=== PATIENT | male | born 1975 | race Hispanic/Latino ===

== ENCOUNTER 2017-03-04 10:23 | Emergency (ER) | payer OTHER ==
[2017-03-04 10:46] VITALS: TEMP 98
[2017-03-04] MEDS ORDERED: Sodium Chloride 0.9% 1,000 ML IV STA (10:58)
--- NOTE | 2017-03-04 11:09 | ED PDOC ---
HPI: Abdomen Time Seen by Provider: 03/04/17 10:44 Chief Complaint (Nursing): Male Genitourinary Chief Complaint (Provider): Flank pain History Per: Patient History/Exam Limitations: no limitations Onset/Duration Of Symptoms: Hrs Outside of [place] travel?: No Current Symptoms Are (Timing): Still Present Severity: Moderate Location Of Pain/Discomfort: Other (right flank) Quality Of Discomfort: "Pain" Associated Symptoms: denies: Fever, Chills, Nausea, Vomiting, Diarrhea, Urinary Symptoms Alleviating Factors: denies: OTC Meds Additional History Per: Patient Additional Complaint(s): The pt is a 41yo male, with no pertinent PMHx, presents to the ED for evaluation of sharp right flank pain since 9am today. Pt reports the pain ins non-radiating, with no associated fever, nausea, vomiting, dysuria or hematuria. Pt reports taking 2 tylenol for pain without relief. Denies any other medical complaints. Past Medical History Reviewed: Historical Data, Nursing Documentation, Vital Signs Vital Signs: Last Vital Signs Temp 98 F 03/04/17 10:44 Pulse 78 03/04/17 16:10 Resp 16 03/04/17 16:10 BP 128/72 03/04/17 16:10 Pulse Ox 98 03/04/17 16:10 - Medical History PMH: Bronchitis - Surgical History Other surgeries: foot surgery, achilles repair, ortho surgery - Family History Family History: States: Unknown Family Hx - Home Medications Home Medications: Ambulatory Orders Medication Instructions Recorded Naproxen [Naprosyn] 500 mg PO BID PRN #15 tablet 03/04/17 Nitrofurantoin Macrocrystals 100 mg PO BID #14 cap 03/04/17 [Macrobid] Tamsulosin [Flomax] 0.4 mg PO DAILY #14 cap 03/04/17 oxyCODONE/Acetaminophen [Percocet 1 tab PO Q6H PRN #15 tab 03/04/17 5/325 mg Tab] - Allergies Allergies/Adverse Reactions: Allergies Allergy/AdvReac Type Severity Reaction Status Date / Time No Known Allergies Allergy Verified 03/04/17 10:43 Review of Systems ROS Statement: Except As Marked, All Systems Reviewed And Found Negative Constitutional: Negative for: Fever Gastrointestinal: Positive for: Abdominal Pain (right flank). Negative for: Nausea, Vomiting, Diarrhea Genitourinary Male: Negative for: Dysuria, Hematuria Physical Exam - Reviewed Nursing Documentation Reviewed: Yes Vital Signs Reviewed: Yes - Physical Exam Appears: Positive for: Well, Non-toxic, No Acute Distress Head Exam: Positive for: ATRAUMATIC, NORMAL INSPECTION, NORMOCEPHALIC Skin: Positive for: Normal Color Eye Exam: Positive for: Normal appearance Neck: Positive for: Normal Cardiovascular/Chest: Positive for: Regular Rate, Rhythm Respiratory: Positive for: Normal Breath Sounds. Negative for: Respiratory Distress Gastrointestinal/Abdominal: Positive for: Normal Exam, Soft. Negative for: Tenderness Back: Positive for: Normal Inspection. Negative for: R CVA Tenderness Extremity: Positive for: Normal ROM. Negative for: Deformity Neurologic/Psych: Positive for: Alert, Oriented - Laboratory Results Result Diagrams: 03/04/17 11:10 03/04/17 11:10 - ECG O2 Sat by Pulse Oximetry: 99 (RA) Pulse Ox Interpretation: Normal Medical Decision Making Medical Decision Making: Time: 11:00 Impression: Kidney stone, Back pain, UTI, Pyelonephritis Plan: * Bloodwork * IV Fluids * Urinalysis * Reassess Bradycardia noted, pt states this is normal for him, HR 40s. Rx Percocet, risk of opioid addiction discussed with patient, searched [place] [employer] - no results. CT AP Impression: Punctate calcification lower pole right kidney. No evidence of right-sided hydronephrosis. Findings also consistent with constipation most pronounced on within the cecum and at ascending colon as detailed above. Tiny fat containing umbilical hernia. Mild bibasilar atelectasis left greater than right. Scribe Attestation: Documented by Senait Armstrong acting as a scribe for Dorothy Doyle MD. Provider Attestation: All medical record entries made by the Scribe were at my direction and personally dictated by me. I have reviewed the chart and agree that the record accurately reflects my personal performance of the history, physical exam, medical decision making, and the department course for this patient. I have also personally directed, reviewed, and agree with the discharge instructions and disposition. Disposition - Clinical Impression Clinical Impression: Ureteral calculus - Disposition Referrals: Tad Gomez Jr., MD [Staff Provider] - Disposition: Routine/Home Disposition Time: 15:00 Condition: STABLE Prescriptions: Naproxen [Naprosyn] 500 mg PO BID PRN #15 tablet PRN Reason: Pain, Moderate (4-7) Nitrofurantoin Macrocrystals [Macrobid] 100 mg PO BID #14 cap oxyCODONE/Acetaminophen [Percocet 5/325 mg Tab] 1 tab PO Q6H PRN #15 tab PRN Reason: Pain, Severe (8-10) Tamsulosin [Flomax] 0.4 mg PO DAILY #14 cap Instructions: Ureteral Stones (ED)
[2017-03-04 11:31] LABS: BASO % 0.4 % (0.0-2.0); EOS # 0.1 K/uL (0.0-0.7); EOS % 0.9 % (0.0-4.0); HEMATOCRIT 43.4 % (35.0-51.0); LYMPH # 1.2 K/uL (1.0-4.3); LYMPH % 14.5 % (20.0-40.0); MEAN CORPUSCULAR HEMOGLOBIN 27.1 pg (27.0-31.0); MEAN CORPUSCULAR HGB CONC 32.6 g/dL (33.0-37.0); MEAN PLATELET VOLUME 8.8 fl (7.2-11.7); MONO # 0.4 K/uL (0.0-0.8); MONO % 5.5 % (0.0-10.0); NEUT # 6.3 K/uL (1.8-7.0); NEUT % 78.7 % (50.0-75.0); NRBC % 0.1 % (0.0-0.0); RED CELL DISTRIBUTION WIDTH 14.8 % (11.5-14.5)
[2017-03-04 11:44] LABS: ALB/GLOB RATIO 1.6 (1.0-2.1); ALKALINE PHOSPHATASE 55 U/L (38-126); ALT/SGPT 44 U/L (21-72); AST/SGOT 28 U/L (17-59); BILIRUBIN,TOTAL 0.4 mg/dl (0.2-1.3); BLOOD UREA NITROGEN 16 mg/dl (9-20); CALCIUM 9.5 mg/dL (8.4-10.2); CARBON DIOXIDE 28 mmol/L (22-30); CHLORIDE 104 mmol/L (98-107); GFR AFRICAN-AMERICAN > 60; GLUCOSE,RANDOM 110 mg/dL (75-110); POTASSIUM 4.4 MMOL/L (3.6-5.0); SODIUM 135 mmol/l (132-148); TOTAL PROTEIN 7.1 G/DL (6.3-8.2)
[2017-03-04 11:55] LABS: RBC URINE 147 /hpf (0-3); URINE BACTERIA OCC (<OCC); URINE BILIRUBIN NEGATIVE (NEGATIVE); URINE BLOOD MODERATE (NEGATIVE); URINE CALCIUM OXALATE CRYSTALS FEW /hpf (<OCC); URINE COLOR YELLOW (YELLOW); URINE GLUCOSE (UA) NEG (Normal); URINE KETONE NEGATIVE (NEGATIVE); URINE LEUKOCYTE ESTERASE NEG Leu/uL (Negative); URINE PROTEIN NEGATIVE (NEGATIVE); URINE UROBILINOGEN 0.2-1.0 mg/dL (0.2-1.0); WBC URINE 1 /hpf (0-5)
[2017-03-04 12:11] LABS: PARTIAL THROMBOPLASTIN TIME 22.1 SECONDS (23.3-32.5)
--- NOTE | 2017-03-04 14:56 | CT ---
PROCEDURE: CT abdomen pelvis dated 03/04/2017. HISTORY: R flank pain COMPARISON: None. TECHNIQUE: Contiguous axial images of the abdomen and pelvis pelvis performed without oral or intravenous contrast material. Coronal and Sagittal reformats generated. Radiation dose: Total exam DLP = 784.02 mGy-cm. This CT exam was performed using one or more of the following dose reduction techniques: Automated exposure control, adjustment of the mA and/or kV according to patient size, and/or use of iterative reconstruction technique. FINDINGS: LOWER THORAX: Minimal bibasilar atelectasis left greater than right. No infiltrate effusion or basilar pneumothorax. Heart size is within range of normal. No significant pericardial effusion. Small hiatal hernia. LIVER: Liver exhibits normal size and attenuation pattern. No evidence of hepatic mass collection or calcification. GALLBLADDER AND BILE DUCTS: gallbladder is physiologically distended. No evidence of intraluminal gallbladder calculi. PANCREAS: Pancreas grossly unremarkable. SPLEEN: Spleen exhibits normal size and attenuation pattern ADRENALS: No adrenal lesions. . KIDNEYS AND URETERS: There is a punctate nonobstructing calcific density within lower pole right kidney. No evidence of hydronephrosis. There is a rounded approximately 3.9 mm calcification also noted within the right aspect of the pelvis the which is felt to represent a calcified phlebolith and not a distal right ureteral calculus however correlation with urinalysis is recommended. . No evidence of left-sided and nephrolithiasis or hydronephrosis BLADDER: Urinary bladder is physiologically distended. No evidence of intraluminal urinary bladder calculi. REPRODUCTIVE: Prostate gland measures approximately 3.76 cm in transverse dimension. APPENDIX: What appears represent a tiny partially debris and air filled appendix seen best on axial image number [id number]. No periappendiceal inflammatory changes. BOWEL: Evaluation of the bowel slightly limited due to the lack of oral contrast material stomach is under distended which presumably accounts for thick-walled appearance. Gastritis not excluded. Visualized loops of small bowel exhibit normal contour and caliber. No evidence of acute mechanical small bowel obstruction. Large amount of stool is seen within cecum and and at ascending colon and less so the remaining colon consistent with fecal retention/ constipation. No definitive mural wall thickening PERITONEUM: Unremarkable. No fluid collection. No free air. Tiny fat containing umbilical hernia. LYMPH NODES: No significant lymphadenopathy. VASCULATURE: Unremarkable. No aortic aneurysm. BONES: Osseous structures unremarkable OTHER FINDINGS: None. IMPRESSION: Punctate calcification lower pole right kidney. No evidence of right-sided hydronephrosis. Findings also consistent with constipation most pronounced on within the cecum and at ascending colon as detailed above. Tiny fat containing umbilical hernia. Mild bibasilar atelectasis left greater than right. See above discussion for additional details an incidental findings.
[2017-03-04 16:11] VITALS: BP 128/72; PULSE 78; RESP 16
[2017-03-04 16:12] VITALS: O2SAT 99
== END 2017-03-04 15:45 | disposition home or self-care (01) ==
LOC: H.ER 10:23
DX: N20.0 Calculus of kidney (principal); R10.9 Unspecified abdominal pain; K59.00 Constipation, unspecified